=== PATIENT | female | born 1985 | race Caucasian/White ===

== ENCOUNTER 2018-01-15 02:16 | Emergency (ER) | payer OTHER ==
[2018-01-15] MEDS ORDERED: Sodium Chloride 0.9% 1,000 ML IV ONE (02:21)
[2018-01-15] MEDS ORDERED: Alum Hydrox/Mag Hydrox/Simeth 15 ML, Metoclopramide 5 MG, Lidocaine 2% 5 ML PO ONE ×3 (02:21)
[2018-01-15] MEDS ORDERED: Pantoprazole 40 MG Vial IVPUSH ONE (02:21)
--- NOTE | 2018-01-15 02:22 | EDM.PDOC ---
ED HPI GENERAL MEDICAL PROBLEM - General Chief Complaint: Gastrointestinal Problem Stated Complaint: HEART BURN, CHEST PAIN, SHORTNESS OF BREATH Time Seen by Provider: 01/15/18 02:22 Source of Information: Reports: Patient - History of Present Illness INITIAL COMMENTS - FREE TEXT/NARRATIVE: HISTORY AND PHYSICAL: History of present illness: [Patient presents with burning chest pain 4 out of 10 nonradiating no radiation arm neck or jaw no diaphoresis Patient is happy and jovial she states she has heartburn she had taken some Tums with some improvement of symptoms, she is in no distress at this time she has no cardiac history no chronic illness or disease outside of polycystic ovarian syndrome she does not take any medications for this. No fever nausea vomiting diarrhea constipation chest pain shortness breath headache dizziness or palpitation no bowel or urine symptoms at current patient received proton X GI cocktail pain 0 out of 10 ] Review of systems: As per history of present illness and below otherwise all systems reviewed and negative. Past medical history: As per history of present illness and as reviewed below otherwise noncontributory. Surgical history: As per history of present illness and as reviewed below otherwise noncontributory. Social history: No reported history of drug or alcohol abuse. Family history: As per history of present illness and as reviewed below otherwise noncontributory. Physical exam: HEENT: Atraumatic, normocephalic, pupils reactive, negative for conjunctival pallor or scleral icterus, mucous membranes moist, throat clear, neck supple, nontender, trachea midline. Lungs: Clear to auscultation, breath sounds equal bilaterally, chest nontender. Heart: S1S2, regular, negative for clicks, rubs, or JVD. Abdomen: Soft, nondistended, nontender. Negative for masses or hepatosplenomegaly. Negative for costovertebral tenderness. Pelvis: Stable nontender. Genitourinary: Deferred. Rectal: Deferred. Extremities: Atraumatic, negative for cords or calf pain. Neurovascular unremarkable. Neuro: Awake, alert, oriented. Cranial nerves II through XII unremarkable. Cerebellum unremarkable. Motor and sensory unremarkable throughout. Exam nonfocal. Diagnostics: []CBC CMP troponin lipase Chest 1 view EKG Therapeutics: [1 L normal saline bolus Proton X 80 mg IV G GI cocktail] Impression: [GERD] Definitive disposition and diagnosis as appropriate pending reevaluation and review of above. epigastric Pain Score (Numeric/FACES): 2 - Related Data Allergies Allergy/AdvReac Type Severity Reaction Status Date / Time No Known Allergies Allergy Verified 01/15/18 02:30 Home Meds: Home Meds . [No Known Home Meds] 01/15/18 [History] ED ROS GENERAL - Review of Systems Review Of Systems: ROS reveals no pertinent complaints other than HPI. ED EXAM, GENERAL - Physical Exam Exam: See Below Course - Vital Signs Last Recorded V/S: Last Vital Signs Temp 96.5 F 01/15/18 02:18 Pulse 95 01/15/18 02:18 Resp 14 01/15/18 02:18 BP 157/95 H 01/15/18 02:18 Pulse Ox 96 01/15/18 02:18 - Orders/Labs/Meds Orders: Active Orders 24 hr Category Date Time Status EKG Documentation Completion [RC] STAT Care 01/15/18 02:21 Active Chest 1V Frontal [CR] Stat Exams 01/15/18 02:22 Taken Labs: Laboratory Tests 01/15/18 01/15/18 Range/Units 02:35 02:35 WBC 6.64 (4.0-11.0) K/uL RBC 4.70 (4.30-5.90) M/uL Hgb 13.5 (12.0-16.0) g/dL Hct 40.9 (36.0-46.0) % MCV 87.0 (80.0-98.0) fL MCH 28.7 (27.0-32.0) pg MCHC 33.0 (31.0-37.0) g/dL RDW Std Deviation 39.5 (28.0-62.0) fl RDW Coeff of Kip 13 (11.0-15.0) % Plt Count 261 (150-400) K/uL MPV 9.40 (7.40-12.00) fL Neut % (Auto) 58.4 (48.0-80.0) % Lymph % (Auto) 30.0 (16.0-40.0) % Tyrrell % (Auto) 10.2 (0.0-15.0) % Eos % (Auto) 1.2 (0.0-7.0) % Baso % (Auto) 0.2 (0.0-1.5) % Neut # (Auto) 3.9 (1.4-5.7) K/uL Lymph # (Auto) 2.0 (0.6-2.4) K/uL Tyrrell # (Auto) 0.7 (0.0-0.8) K/uL Eos # (Auto) 0.1 (0.0-0.7) K/uL Baso # (Auto) 0.0 (0.0-0.1) K/uL Sodium 141 (136-146) mmol/L Potassium 3.7 (3.5-5.1) mmol/L Chloride 107 (98-110) mmol/L Carbon Dioxide 22 (21-31) mmol/L BUN 14 (6.0-23.0) mg/dL Creatinine 0.8 (0.6-1.5) mg/dL Est Cr Clr Drug Dosing 110.18 mL/min Estimated GFR (MDRD) > 60.0 ml/min Glucose 145 H (60-110) mg/dL Calcium 9.4 (8.8-10.8) mg/dL Total Bilirubin 0.4 (0.1-1.5) mg/dL AST 21 (5-40) IU/L ALT 23 (8-54) IU/L Alkaline Phosphatase 72 (40-150) Troponin I < 0.10 (0.0-0.29) NG/ML Total Protein 7.0 (6.0-8.0) g/dL Albumin 4.3 (3.5-5.0) g/dL Globulin 2.7 (2.0-3.5) g/dL Albumin/Globulin Ratio 1.6 (1.3-2.8) Lipase 28 (7-80) U/L Meds: Medications Discontinued Medications Generic Name Dose Route Start Last Admin Trade Name Freq PRN Reason Stop Dose Admin Al Hydroxide/Mg Hydroxide 15 0 ml 01/15/18 02:21 01/15/18 02:32 ml/ Metoclopramide HCl 5 mg/ PO 01/15/18 02:22 25 each Lidocaine HCl 5 ml ONETIME ONE Administration Sodium Chloride 1,000 mls @ 999 mls/hr 01/15/18 02:21 01/15/18 02:37 Normal Saline IV 01/15/18 03:21 999 mls/hr STAT ONE Administration Pantoprazole Sodium 80 mg 01/15/18 02:21 01/15/18 02:37 Protonix Iv IVPUSH 01/15/18 02:22 80 mg .BOLUS ONE Administration Departure - Departure Time of Disposition: 03:48 Disposition: Home, Self-Care 01 Condition: Good Clinical Impression: GERD (gastroesophageal reflux disease) - Discharge Information Referrals: PCP,None [Primary Care Provider] - Forms: ED Department Discharge Additional Instructions: Prilosec 40 mg daily Avoid triggers for acid reflux Return if symptoms persist or worsen Follow-up with primary care in 2 weeks sooner as needed The following information is given to patients seen in the emergency department who are being discharged to home. This information is to outline your options for follow-up care. We provide all patients seen in our emergency department with a follow-up referral. The need for follow-up, as well as the timing and circumstances, are variable depending upon the specifics of your emergency department visit. If you don't have a primary care physician on staff, we will provide you with a referral. We always advise you to contact your personal physician following an emergency department visit to inform them of the circumstance of the visit and for follow-up with them and/or the need for any referrals to a consulting specialist. The emergency department will also refer you to a specialist when appropriate. This referral assures that you have the opportunity for follow-up care with a specialist. All of these measure are taken in an effort to provide you with optimal care, which includes your follow-up. Under all circumstances we always encourage you to contact your private physician who remains a resource for coordinating your care. When calling for follow-up care, please make the office aware that this follow-up is from your recent emergency room visit. If for any reason you are refused follow-up, please contact the [facility] emergency department at and asked to speak to the emergency department charge nurse. - My Orders Last 24 Hours: My Active Orders 01/15/18 02:21 EKG Documentation Completion [RC] STAT 01/15/18 02:22 Chest 1V Frontal [CR] Stat - Assessment/Plan Last 24 Hours: My Active Orders 01/15/18 02:21 EKG Documentation Completion [RC] STAT 01/15/18 02:22 Chest 1V Frontal [CR] Stat
[2018-01-15 03:13] LABS: CHLORIDE,CL 107 mmol/L (98-110); SODIUM,NA 141 mmol/L (136-146)
--- NOTE | 2018-01-16 10:16 | CR ---
EXAM DATE: 01/15/18 PATIENT'S AGE: 32 Patient: ALECIA POLLARD Facility: [place], [place] Site . Site : 1985 Study: XRay Chest [id number]/25/2018 3:04:10 AM Ordering Physician: Doctor Shelton Final Report: INDICATION: SOB/CHEST PAIN TECHNIQUE: Chest 1 view. COMPARISON: None. FINDINGS: Cardiovascular and mediastinum: Heart size and vasculature are normal in caliber and appearance. Mediastinum is within normal limits. Lungs and pleural space: Lungs are clear. No sign of infiltrate or mass. No sign of pleural effusion. No pneumothorax. Bones and soft tissues: No significant findings. IMPRESSION: Unremarkable chest. Dictated by: Castillo Badillo MD @ 01/15/2018 03:06:50 (Electronic Signature) Report Signed by Proxy. JORDAN
== END 2018-01-15 04:10 | disposition home or self-care (01) ==
LOC: MW.ED 02:16
DX: K21.9 Gastro-esophageal reflux disease without esophagitis (principal)
CPT/HCPCS: 71045; 80053; 83690; 84484; 85025; 93005; 96361; 96374; 99284; A9270; C9113; J7040; 99283

== ENCOUNTER 2018-04-18 10:07 | Day surgery (SDC) | payer OTHER ==
[~2018-04-18 10:07] MED LIST: Lactated Ringers 1,000 ML IV SCH; Sodium Chloride 0.9% 10 ML Syringe FLUSH PRN; Sodium Chloride 0.9% 2.5 ML Syringe FLUSH PRN
--- NOTE | 2018-04-18 11:08 | PCM.PREANE ---
Preanesthetic Assessment - Anesthesia/Transfusion/Family Hx Anesthesia History: Prior Anesthesia Without Reaction Family History of Anesthesia Reaction: No Transfusion History: No Prior Transfusion(s) Intubation History: Unknown - Review of Systems General: No Symptoms Pulmonary: No Symptoms Cardiovascular: No Symptoms Gastrointestinal: Abdominal Pain Neurological: No Symptoms Other: Reports: None - Physical Assessment NPO Status Date: 04/17/18 NPO Status Time: 20:00 O2 Sat by Pulse Oximetry: 96 Respiratory Rate: 16 Vital Signs: Last Vital Signs Temp 36.4 C 04/18/18 10:49 Pulse 83 04/18/18 10:49 Resp 16 04/18/18 10:49 BP 152/76 H 04/18/18 10:49 Pulse Ox 96 04/18/18 10:49 Height: 1.78 m Weight: 135.171 kg ASA Class: 3 Mental Status: Alert & Oriented x3 Airway Class: Mallampati = 2 Dentition: Reports: Normal Dentition Thyro-Mental Finger Breadths: 3 Mouth Opening Finger Breadths: 3 ROM/Head Extension: Full Lungs: Clear to Auscultation, Normal Respiratory Effort Cardiovascular: Regular Rate, Regular Rhythm - Lab Values: Laboratory Last Values Urine HCG, Qual NEGATIVE (NEGATIVE) 04/18/18 10:20 - Allergies Allergies/Adverse Reactions: Allergies Allergy/AdvReac Type Severity Reaction Status Date / Time No Known Allergies Allergy Verified 04/12/18 11:12 - Blood Blood Available: No - Anesthesia Plan Pre-Op Medication Ordered: None - Acknowledgements Anesthesia Type Planned: MAC Pt an Appropriate Candidate for the Planned Anesthesia: Yes Alternatives and Risks of Anesthesia Discussed w Pt/Guardian: Yes Pt/Guardian Understands and Agrees with Anesthesia Plan: Yes PreAnesthesia Questionnaire HEENT History: Reports: Other (See Below) Other HEENT History: wears glasses Cardiovascular History: Reports: High Cholesterol, Hypertension Respiratory History: Reports: Other (See Below) Other Respiratory History: borderline sleep apnea, CPAP was not ordered Gastrointestinal History: Reports: Cholelithiasis, GERD Genitourinary History: Reports: Renal Calculus 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: Polycystic Ovaries (takes metformin as treatment) Musculoskeletal History: Reports: None Neurological History: Reports: None Psychiatric History: Reports: None Endocrine/Metabolic History: Reports: Obesity/BMI 30+ (BMI 42.8, morbid obesity) Hematologic History: Reports: Other (See Below) (leukopenia) Dermatologic History: Reports: None - Infectious Disease History Infectious Disease History: Reports: Chicken Pox - Past Surgical History Head Surgeries/Procedures: Reports: None HEENT Surgical History: Reports: Oral Surgery - SUBSTANCE USE Smoking Status *Q: Never Smoker Recreational Drug Use History: No - HOME MEDS Home Medications: Home Meds Lisinopril 10 mg PO DAILY 04/12/18 [History] metFORMIN HCl [Metformin HCl] 500 mg PO TID 04/12/18 [History] - CURRENT (IN HOUSE) MEDS Current Meds: Current Medications Lactated Ringer's (Ringers, Lactated) 1,000 mls @ 125 mls/hr IV ASDIRECTED ROSA Last Admin: 04/18/18 10:40 Dose: 125 mls/hr Sodium Chloride (Saline Flush) 10 ml FLUSH ASDIRECTED PRN PRN Reason: Keep Vein Open Sodium Chloride (Saline Flush) 2.5 ml FLUSH ASDIRECTED PRN PRN Reason: Keep Vein Open
[2018-04-18] MEDS ORDERED: Lidocaine 2% 5 ML SDV ONE (12:23)
[2018-04-18] MEDS ORDERED: Propofol 200 MG/20 ML SDV ONE (12:23)
[2018-04-18] MEDS ORDERED: fentaNYL 100 MCG/2 ML SDV ONE (12:24)
[2018-04-18] MEDS ORDERED: Midazolam 1 MG/ML 2 ML SDV ONE (12:24)
--- NOTE | 2018-04-18 13:07 | PCM.OPNOTE ---
- General Post-Op/Procedure Note Date of Surgery/Procedure: 04/18/18 Operative Procedure(s): Diagnostic EGD Findings: Normal EGD Pre Op Diagnosis: Epigastric pain Post-Op Diagnosis: Symptomatic cholelithiasis Anesthesia Technique: XIOMARA Primary Surgeon: Kita Conklin Condition: Good
--- NOTE | 2018-04-18 13:41 | OR ---
SURGEON: MARIA LUISA DOMINGUEZ MD DATE OF PROCEDURE: 04/18/2018 PREOPERATIVE DIAGNOSES: Gastritis, cholelithiasis. POSTOPERATIVE DIAGNOSES: Normal esophagogastroduodenoscopy, cholelithiasis. PROCEDURE PERFORMED: Diagnostic esophagogastroduodenoscopy. ANESTHESIA: MAC. INSTRUMENT USED: Olympus endoscope. EXTENT OF EXAM: To the second portion of duodenum. PREPARATION: Good. LIMITATIONS: None. INDICATION FOR EXAMINATION: The patient is a 32-year-old female, who presented with an acute onset of postprandial abdominal pain. This was relieved with [id number] antacids and belching. Workup revealed the patient had cholelithiasis. Decision was made to perform a diagnostic EGD prior to removing the gallbladder. The patient and I discussed the procedure, expected perioperative course, and risks including bleeding, infection, or damage to surrounding structures including perforation. The patient verbalized understanding and wishes to proceed. PROCEDURE IN DETAIL: The patient was brought into the endoscopy suite and placed in a beach chair position. A time-out was completed verifying the patient's name, age, date of , allergies, and procedure to be performed. Monitored anesthesia care was induced and a bite block was placed in the patient's mouth. Continuous oxygen was provided via nasal cannula throughout the procedure. After adequate sedation was achieved, a well lubricated endoscope was placed in the patient's mouth and advanced under direct visualization to the second portion of duodenum. This appeared normal and a photograph was taken. The scope was then fully withdrawn while examining the color, texture, anatomy, and integrity mucosa of the upper GI tract. The mucosa of the duodenum appeared free of inflammation or ulceration. The scope was brought into the stomach and a photograph was taken of the pylorus as well as the GE junction. Both appeared normal. The gastric mucosa appeared normal. Biopsies were taken of the gastric antrum, body, and fundus and sent for H. pylori testing and histologic review. The scope was then brought into the distal esophagus. A photograph was taken of the Z-line, which appeared normal. I carefully inspected the distal esophageal mucosa. There was no evidence of inflammation or ulceration that would suggest chronic reflux. The remainder of the esophageal mucosa was free of pathology. The scope was removed and the procedure terminated. The patient tolerated the procedure well and was taken to PACU in stable condition. ENDOSCOPIC DIAGNOSIS: Normal esophagogastroduodenoscopy. RECOMMENDATIONS: We will perform a laparoscopic possible open cholecystectomy on the patient next week for symptomatic cholelithiasis. JHONY TORRES /[id number]
--- NOTE | 2018-04-18 13:56 | PCM48HPAN ---
Post Anesthesia Note - EVALUATION WITHIN 48HRS OF ANESTHETIC Vital Signs in Normal Range: Yes Patient Participated in Evaluation: Yes Respiratory Function Stable: Yes Airway Patent: Yes Cardiovascular Function Stable: Yes Hydration Status Stable: Yes Pain Control Satisfactory: Yes Nausea and Vomiting Control Satisfactory: Yes Resp Rate: 10
== END 2018-04-18 13:45 | disposition home or self-care (01) ==
LOC: MW.SDS 10:07
PROVIDERS: ATTEND Surgery
DX: K80.20 Calculus of gallbladder without cholecystitis without obstruction (principal); K29.70 Gastritis, unspecified, without bleeding; I10 Essential (primary) hypertension; E66.01 Morbid (severe) obesity due to excess calories; Z68.41 Body mass index [BMI] 40.0-44.9, adult; E28.2 Polycystic ovarian syndrome; G47.33 Obstructive sleep apnea (adult) (pediatric); E78.5 Hyperlipidemia, unspecified; K21.9 Gastro-esophageal reflux disease without esophagitis; Z79.84 Long term (current) use of oral hypoglycemic drugs; Z79.899 Other long term (current) drug therapy
CPT/HCPCS: 43239; 81025; J2250; J3010; J7120; 00731; 88305; 88312; J2704